=== PATIENT | male | born 1970 | race Caucasian/White ===

== ENCOUNTER 2019-06-05 18:47 | Inpatient (IN) | payer OTHER, MEDICAID ==
[~2019-06-05] VITALS: Ht 177.8 cm; Wt 213.6 kg
[~2019-06-05 18:47] MED LIST: ASPIR 8181 MG PO; COZAAR 25 MG TA25 M1 PO; LEXAPRO20 MG PO; LIPITOR 20 MG T20 M1 PO; UNICOMPLEX M TA1 TA1 PO
[2019-06-05 18:59] VITALS: BP 123/70
[2019-06-05 19:15] LABS: ABSOLUTE BASOPHILS 0.1 thou/uL (0.0-0.2); ABSOLUTE EOSINOPHILS 0.1 thou/uL (0.0-0.7); ABSOLUTE LYMPHOCYTES 1.2 thou/uL (0.8-5.3); ABSOLUTE MONOCYTES 0.4 thou/uL (0.0-1.2); ABSOLUTE NEUTROPHILS 5.4 thou/uL (1.6-8.1); BASOPHILS 0.9 %; EOSINOPHILS 1.8 %; HEMATOCRIT 42.5 % (42.0-52.0); HEMOGLOBIN 13.6 gm/dL (14.0-18.0); LYMPHOCYTES 17.3 %; MCH 25.7 pg (26.0-34.0); MCHC 31.9 g/dL (28.0-37.0); MCV 80.6 fL (80.0-100.0); MONOCYTES 5.1 %; MPV 7.6 fl. (7.2-11.1); NUCLEATED RBCS 0 /100WBC; PLATELET COUNT* 317 thou/uL (150-400); POLYS 74.9 %; RBC 5.27 mil/uL (4.50-6.00); RDW-CV 22.2 % (10.5-14.5); WBC 7.2 thou/uL (4.0-11.0)
[2019-06-05 19:20] LABS: ANION GAP 10 mmol/L (7-16); BUN 20 mg/dL (7-18); CALCIUM 9.7 mg/dL (8.5-10.1); CHLORIDE 102 mmol/L (98-107); CO2 25 mmol/L (21-32); CREATININE 1.4 mg/dL (0.6-1.3); GLUCOSE 130 mg/dL (70-99); SODIUM 137 mmol/L (136-145)
[2019-06-05 19:22] LABS: POTASSIUM 4.2 mmol/L (3.5-5.1)
[2019-06-05 19:26] LABS: APTT 34.3 Seconds (25.0-31.3); INR 1.1; PROTIME 11.1 Seconds (9.20-11.50)
[2019-06-05 19:35] LABS: ALBUMIN 3.5 g/dL (3.4-5.0); ALKALINE PHOSPHATASE 81 U/L (46-116); CK-MB MASS < 0.5 ng/mL (<0.5-3.6); LIPASE 139 U/L (73-393); MAGNESIUM 1.9 mg/dL (1.8-2.4); NT-PRO BRAIN NAT PEPTIDE 24 pg/mL (<300); SGOT 18 U/L (15-37); SGPT 19 U/L (30-65); TOTAL BILIRUBIN 0.3 mg/dL (<0.1-1.0); TOTAL PROTEIN 8.9 g/dL (6.4-8.2)
[2019-06-05 19:42] LABS: ANISOCYTOSIS 2+; PLATELET ESTIMATE ADEQUATE
[2019-06-06 01:00] VITALS: BP 100/63
[2019-06-06 04:58] VITALS: BP 118/61
[2019-06-06 12:22] VITALS: BP 129/73
[2019-06-06 13:02] VITALS: BP 139/78
[2019-06-06] MEDS ORDERED: PRINIVIL20 MG PO (13:13)
[2019-06-06] MEDS ORDERED: SEROQUEL 100 M100 M1 PO (13:27)
[2019-06-06] MEDS ORDERED: WELLBUTRIN XL300 MG PO (13:28)
[2019-06-06] MEDS ORDERED: COZAAR 25 MG TA25 M1 PO (13:37)
[2019-06-06] MEDS ORDERED: ELIQUIS5 MG PO (13:41)
[2019-06-06] MEDS ORDERED: TOPAMAX 25 MG T25 M1 PO (13:41)
[2019-06-06] MEDS ORDERED: LOPRESSOR50 MG PO (13:42)
[2019-06-06] MEDS ORDERED: FAMOTIDINE 20 M20 MG PO (13:43)
[2019-06-06] MEDS ORDERED: FUROSEMIDE 20 M20 MG PO (13:43)
[2019-06-06 14:19] LABS: BE -2.6 mmol/L (-2 to +3); PCO2 VENOUS 39.2 mmHg (41.0-51.0); PO2 VENOUS 70.6 mmHg (35.0-45.0)
--- NOTE | 2019-06-06 15:01 | EKG ---
[place] [address] ELECTROCARDIOGRAM REPORT Name: NIKKI HAYES V Room: [address] ADM IN M.R.#: [id number] Admission: 06/06/19 Attend Phys: Neil Cary Discharge: Date of : 66 Report #: [id number] THIS REPORT FOR: //name// [facility] ED Test Date: 2019-06-05 Test Time: 18:55:08 Pat Name: NIKKI HAYES Department: Room: [facility] Gender: M Edge Beader: LUCILA : 1970 Requested By: Scottie Vines Order Number: [id number] MD: Jose Angel [facility] Measurements Intervals [employer] Rate: 96 P: 47 [place]: 159 QRS: -28 QRSD: 87 T: 46 QT: 367 QTc: 464 Interpretive Statements Sinus rhythm Borderline left axis deviation Low voltage, precordial leads Borderline T abnormalities, anterior leads Baseline wander in lead(s) I,III,aVR,aVL No previous ECG available for comparison Electronically Signed On 06-06-2019 15:01:14 CDT by Jose Angel [facility] [email or web address] <ELECTRONICALLY SIGNED> By: Jose Angel [facility] MD, FACC 06/06/19 1501 1855 54 Jose Angel [facility] MD, [facility] /EPI
[2019-06-06 15:52] VITALS: BP 142/77
--- NOTE | 2019-06-06 16:25 | 2DMMODE ---
[place] [address] 2 D/M-MODE ECHOCARDIOGRAM Name: NIKKI HAYES V Room: [address] IN [facility]#: [id number] Admission: 06/06/19 Attend Phys: Rosas Oakes Discharge: Date of : 66 Date of Service: 06/06/19 1624 Report #: [id number] THIS REPORT FOR: //name// APPROVED REPORT Study performed: 06/06/2019 14:00:24 EXAM: Comprehensive 2D, Doppler, and color-flow Echocardiogram Patient Location: In-Patient Room #: [facility] Status: routine BSA: 3.01 HR: 81 bpm BP: 139/78 mmHg Rhythm: NSR Other Information Study Quality: Good Indications Chest Pain 2D Dimensions IVSd: 12.56 (7-11mm) LVOT Diam: 22.63 (18-24mm) LVDd: 50.72 mm PWd: 11.33 (7-11mm) Ascending Ao: 33.28 (22-36mm) LVDs: 31.45 (25-40mm) Aortic Root: 31.59 mm Volumes Left Atrial Volume (Systole) LA ESV Index: 19.60 mL/m2 Aortic Valve AoV Peak Darryl.: 1.59 m/s AO Peak Gr.: 10.10 mmHg LVOT Max P.97 mmHg AO Mean Gr.: 6.22 mmHg LVOT Mean P.45 mmHg LVOT Max V: 1.11 m/s AO V2 VTI: 28.11 cm LVOT Mean V: 0.72 m/s DANDY (VTI): 3.02 cm2 LVOT V1 VTI: 21.08 cm Mitral Valve E/A Ratio: 0.99 MV Decel. Time: 221.70 ms MV E Max Darryl.: 0.66 m/[place] [address] 2 D/M-MODE ECHOCARDIOGRAM Name: NIKKI HAYES V Room: [address] IN ..#: [id number] Admission: 06/06/19 Attend Phys: Rosas Oakes Discharge: Date of : 66 Date of Service: 06/06/19 1624 Report #: [id number] PHT: 64.29 ms MVA (PHT): 3.42 cm2 TDI E/Lateral E': 4.40 E/Medial E': 5.50 Medial E' Darryl.: 0.12 m/s Lateral E' Darryl.: 0.15 m/s Pulmonary Valve PV Peak Darryl.: 1.22 m/s PV Peak Gr.: 5.98 mmHg Left Ventricle The left ventricle is normal size. There is normal LV segmental wall motion. Mild to moderate concentric left ventricular hypertrophy. Left ventricular systolic function is normal. The left ventricular ejection fraction is within the normal range. LVEF is 65%. Grade I - abnormal relaxation pattern. Right Ventricle The right ventricle is normal size. The right ventricular systolic function is normal. Atria The left atrium size is normal. The right atrium size is normal. Aortic Valve Mild aortic valve sclerosis. No aortic regurgitation is present. There is no aortic valvular stenosis. Mitral Valve The mitral valve is normal in structure. There is no mitral valve regurgitation noted. No evidence of mitral valve stenosis. Tricuspid Valve The tricuspid valve is normal in structure. Unable to assess PA pressure. Trace tricuspid regurgitation. Pulmonic Valve The pulmonary valve is normal in structure. There is no pulmonic valvular regurgitation. Great Vessels The aortic root is normal in size. IVC is normal in size and collapses >50% with [place] [address] 2 D/M-MODE ECHOCARDIOGRAM Name: FREDDYNIKKI Jose Alberto Room: [address] IN [facility]#: [id number] Admission: 06/06/19 Attend Phys: Rosas Oakes Discharge: Date of : 66 Date of Service: 06/06/19 1624 Report #: [id number] Pericardium There is no pericardial effusion. <Conclusion> The left ventricle is normal size. Mild to moderate concentric left ventricular hypertrophy. Left ventricular systolic function is normal. The left ventricular ejection fraction is within the normal range. LVEF is 65%. Grade I - abnormal relaxation pattern. The right ventricle is normal size. The left atrium size is normal. Mild aortic valve sclerosis. No aortic regurgitation is present. There is no aortic valvular stenosis. The mitral valve is normal in structure. The tricuspid valve is normal in structure. IVC is normal in size and collapses >50% with inspiration. There is normal LV segmental wall motion. <ELECTRONICALLY SIGNED> By: Jose Angel [facility] MD, FACC 06/06/19 1624 1624 1624 Jose Angel [facility] MD, FACC /INF
[2019-06-06 20:00] VITALS: BP 123/77
[2019-06-07 00:30] VITALS: BP 114/64
[2019-06-07 04:28] VITALS: BP 138/82
[2019-06-07 05:18] LABS: HEMATOCRIT 35.9 % (42.0-52.0); MCH 25.4 pg (26.0-34.0); MCHC 31.6 g/dL (28.0-37.0); MCV 80.3 fL (80.0-100.0); MPV 7.5 fl. (7.2-11.1); RBC 4.47 mil/uL (4.50-6.00); RDW-CV 21.6 % (10.5-14.5); WBC 6.4 thou/uL (4.0-11.0)
[2019-06-07 05:28] LABS: HEMOGLOBIN 11.3 gm/dL (14.0-18.0)
[2019-06-07 05:35] LABS: ALBUMIN 2.9 g/dL (3.4-5.0); CREATININE 1.1 mg/dL (0.6-1.3); POTASSIUM 4.3 mmol/L (3.5-5.1); TOTAL BILIRUBIN 0.2 mg/dL (<0.1-1.0); TOTAL PROTEIN 7.3 g/dL (6.4-8.2)
[2019-06-07 08:00] VITALS: BP 139/75
[2019-06-07 11:48] VITALS: BP 139/81
[2019-06-07 14:17] VITALS: BP 139/81
[2019-06-07] MEDS ORDERED: TORSEMIDE100 MG PO (15:53)
== END 2019-06-07 18:40 | disposition home or self-care (01) | DRG 313 ==
LOC: M.ERS 18:47 → M.TBA-ER 06-06 00:11 → M.2W 06-06 00:11
PROVIDERS: Family Medicine; Internal Medicine; ADMIT Internal Medicine
DX: R07.89 Other chest pain (principal); Z68.44 Body mass index [BMI] 60.0-69.9, adult; E11.9 Type 2 diabetes mellitus without complications; E78.5 Hyperlipidemia, unspecified; K21.9 Gastro-esophageal reflux disease without esophagitis; F41.9 Anxiety disorder, unspecified; I11.0 Hypertensive heart disease with heart failure; F32.9 Major depressive disorder, single episode, unspecified; I50.9 Heart failure, unspecified; E66.01 Morbid (severe) obesity due to excess calories; Z86.711 Personal history of pulmonary embolism; Z88.8 Allergy status to other drugs, medicaments and biological substances; Z79.82 Long term (current) use of aspirin; Z79.899 Other long term (current) drug therapy

== ENCOUNTER 2019-11-10 22:05 | Emergency (ER) | payer MEDICARE, MEDICAID ==
[~2019-11-10] VITALS: Ht 177.8 cm; Wt 208.7 kg
[~2019-11-10 22:05] MED LIST changes: +ELIQUIS5 MG PO; +FAMOTIDINE 20 M20 MG PO; +FUROSEMIDE 20 M20 MG PO; +LOPRESSOR50 MG PO; +PRINIVIL20 MG PO; +SEROQUEL 100 M100 M1 PO; +TOPAMAX 25 MG T25 M1 PO; +TORSEMIDE100 MG PO; +WELLBUTRIN XL300 MG PO
[2019-11-10] MEDS ORDERED: PRINIVIL20 M1 PO (22:18)
[2019-11-10] MEDS ORDERED: FOLIC ACID1 MG PO (22:19)
[2019-11-10] MEDS ORDERED: ISORDIL10 MG PO (22:19)
[2019-11-10] MEDS ORDERED: SEROQUEL400 MG PO (22:20)
[2019-11-10 22:37] LABS: AMP/METHAMP Negative (Negative); BARBITURATES Negative (Negative); BENZODIAZEPINES Negative (Negative); COCAINE Negative (Negative); METHADONE Negative (Negative); OPIATES POSITIVE (Negative); PCP Negative (Negative); THC Negative (Negative); URINE BILIRUBIN NEGATIVE (Negative); URINE BLOOD NEGATIVE (Negative); URINE CLARITY CLEAR; URINE COLOR YELLOW; URINE GLUCOSE-RANDOM NEGATIVE (Negative); URINE KETONES NEGATIVE (Negative); URINE LEUKOCYTES-REFLEX NEGATIVE (Negative); URINE NITRITE-REFLEX NEGATIVE (Negative); URINE PROTEIN NEGATIVE (Negative); URINE SPECIFIC GRAVITY 1.015 (1.005-1.030)
[2019-11-10 22:40] LABS: ABSOLUTE BASOPHILS 0.1 thou/uL (0.0-0.2); ABSOLUTE EOSINOPHILS 0.1 thou/uL (0.0-0.7); ABSOLUTE LYMPHOCYTES 1.2 thou/uL (0.8-5.3); ABSOLUTE MONOCYTES 0.8 thou/uL (0.0-1.2); BASOPHILS 0.9 %; EOSINOPHILS 1.7 %; HEMATOCRIT 34.2 % (42.0-52.0); HEMOGLOBIN 11.2 gm/dL (14.0-18.0); LYMPHOCYTES 14.8 %; MCH 25.7 pg (26.0-34.0); MCHC 32.7 g/dL (28.0-37.0); MCV 78.4 fL (80.0-100.0); MONOCYTES 9.3 %; MPV 7.3 fl. (7.2-11.1); NUCLEATED RBCS 0 /100WBC; PLATELET COUNT* 329 thou/uL (150-400); POLYS 73.3 %; RBC 4.36 mil/uL (4.50-6.00); RDW-CV 17.6 % (10.5-14.5); WBC 8.2 thou/uL (4.0-11.0)
[2019-11-10 22:50] LABS: APTT 32.2 Seconds (25.0-31.3); INR 1.1
[2019-11-10 22:53] LABS: CALCIUM 8.3 mg/dL (8.5-10.1); CREATININE 1.5 mg/dL (0.6-1.3); POTASSIUM 4.3 mmol/L (3.5-5.1)
[2019-11-10 23:07] LABS: ALBUMIN 3.2 g/dL (3.4-5.0); CK-MB MASS 0.7 ng/mL (<0.5-3.6); TOTAL BILIRUBIN 0.3 mg/dL (<0.1-1.0)
[2019-11-11 01:53] VITALS: BP 107/56
--- NOTE | 2019-11-12 10:23 | EKG ---
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
== END 2019-11-11 01:53 | disposition home or self-care (01) ==
LOC: M.ERS 22:05
PROVIDERS: Family Medicine
DX: R07.89 Other chest pain (principal); Z88.8 Allergy status to other drugs, medicaments and biological substances; E78.5 Hyperlipidemia, unspecified; I11.0 Hypertensive heart disease with heart failure; I50.9 Heart failure, unspecified; K21.9 Gastro-esophageal reflux disease without esophagitis; E11.9 Type 2 diabetes mellitus without complications; Z86.711 Personal history of pulmonary embolism; Z79.899 Other long term (current) drug therapy

== ENCOUNTER 2020-06-16 00:30 | Observation (INO) | payer MEDICARE, MEDICAID ==
[~2020-06-16] VITALS: Ht 177.8 cm; Wt 220.0 kg
[~2020-06-16 00:30] MED LIST changes: +FOLIC ACID1 MG PO; +ISORDIL10 MG PO; +PRINIVIL20 M1 PO; +SEROQUEL400 MG PO
[2020-06-16 00:40] VITALS: BP 153/109
[2020-06-16] MEDS ORDERED: JANTOVEN7.5 MG PO (00:45)
[2020-06-16 01:16] LABS: ABSOLUTE BASOPHILS 0.1 thou/uL (0.0-0.2); ABSOLUTE EOSINOPHILS 0.3 thou/uL (0.0-0.7); ABSOLUTE LYMPHOCYTES 1.4 thou/uL (0.8-5.3); ABSOLUTE MONOCYTES 0.5 thou/uL (0.0-1.2); ABSOLUTE NEUTROPHILS 4.4 thou/uL (1.6-8.1); BASOPHILS 1.2 %; HEMATOCRIT 33.5 % (42.0-52.0); HEMOGLOBIN 10.3 gm/dL (14.0-18.0); LYMPHOCYTES 20.9 %; MCHC 30.9 g/dL (28.0-37.0); MCV 77.6 fL (80.0-100.0); MONOCYTES 7.2 %; MPV 6.9 fl. (7.2-11.1); NUCLEATED RBCS 0 /100WBC; PLATELET COUNT* 363 thou/uL (150-400); POLYS 66.7 %; RBC 4.31 mil/uL (4.50-6.00); RDW-CV 22.6 % (10.5-14.5); WBC 6.6 thou/uL (4.0-11.0)
[2020-06-16 01:38] LABS: APTT 38.1 Seconds (25.0-31.3); CALCIUM 8.3 mg/dL (8.5-10.1); CREATININE 1.3 mg/dL (0.6-1.3); INR 2.1; PROTIME 21.3 Seconds (9.20-11.50)
[2020-06-16 01:52] LABS: ALBUMIN 2.9 g/dL (3.4-5.0); MAGNESIUM 1.9 mg/dL (1.8-2.4); TOTAL BILIRUBIN 0.2 mg/dL (<0.1-1.0); TOTAL PROTEIN 7.8 g/dL (6.4-8.2)
--- NOTE | 2020-06-16 03:13 | NUR ---
PT IN INPATIENT BED
[2020-06-16 05:05] VITALS: BP 105/43
--- NOTE | 2020-06-16 07:06 | NUR ---
RESUMED CARE AT 0700 AND RECEIVED FULL REPORT
[2020-06-16 08:09] LABS: CHOLESTEROL 139 mg/dL (<200); HDL CHOLESTEROL 21 mg/dL (>40); LDL CHOLESTEROL 83 mg/dL (<100); TC:HDL 6.6 Ratio (Not establshd); TRIGLYCERIDE 178 mg/dL (<150); VLDL 36 mg/dL (<40)
[2020-06-16 08:11] LABS: SERUM ASSESSMENT Clear
[2020-06-16 08:21] LABS: CALCIUM 8.4 mg/dL (8.5-10.1); CREATININE 1.3 mg/dL (0.6-1.3); POTASSIUM 4.2 mmol/L (3.5-5.1)
[2020-06-16 08:24] LABS: MAGNESIUM 2.2 mg/dL (1.8-2.4)
[2020-06-16 09:09] VITALS: BP 130/55
--- NOTE | 2020-06-16 10:20 | EKG ---
[place] [address] ELECTROCARDIOGRAM REPORT Name: NIKKI HAYES V Room: [address]R.#: [id number] Admission: 06/16/20 Attend Phys: Genny Gross, Discharge: Date of : 66 Date of Service: 06/16/20 0038 Report #: [id number] THIS REPORT FOR: //name// [facility] ED Test Date: 2020-06-16 Test Time: 00:38:44 Pat Name: NIKKI HAYES Department: Room: [facility] Gender: M Stereotyper: GAIL : 1970 Requested By: Ghulam Lomeli Order Number: [id number] MD: Jeryr Cooper Measurements Intervals [place] Rate: 64 P: 66 CT: 171 QRS: 13 QRSD: 107 T: 45 QT: 417 QTc: 431 Interpretive Statements Sinus rhythm early transition Compared to ECG 11/10/2019 22:14:27 Left-axis deviation no longer present Electronically Signed On 06-16-2020 10:20:13 INTERMEDIATE SCHOOL TEACHER by Jerry Cooper [email or web address] <ELECTRONICALLY SIGNED> By: Jerry Cooper MD, [facility] 06/16/20 1020 0038 0038 Jerry Cooper MD, [facility] /EPI
[2020-06-16 11:00] VITALS: BP 130/55
[2020-06-16 11:30] VITALS: BP 125/63
[2020-06-16 11:44] VITALS: BP 125/63
--- NOTE | 2020-06-16 13:43 | CON ---
[address] [address] CONSULTATION Name: NIKKI HAYES V Room: [address] Yuliana#: [id number] Admission: 06/16/20 Attend Phys: Genny Gross MD Discharge: Date of : 66 Report #: [id number] THIS REPORT FOR: //name// cc: NYA - No family physician/PCP FAM - No family physician/PCP ~ DATE OF SERVICE: 06/16/2020 CARDIOLOGY CONSULTATION HISTORY OF PRESENT ILLNESS: The patient is a 49-year-old single white male, who came to the Emergency Room last night complaining of chest pain. The patient has an extensive and complicated past medical history. Unfortunately, he has minimal records here at [facility]. He previously lived in [place], [place]. He has a history of morbid obesity. He has been 5 feet 10 inches; 470 pounds. He is not very active at this time. He uses a cane. He notes that in 2018, he had a blood clot at and he was put on Eliquis. However, he is unsure if the clot was in his lungs or his legs. 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 He was switched from Eliquis to warfarin. He has had no bleeding problems. He was at home yesterday when he felt a pain in his chest. It is a sharp pain; made him short of breath. He does have edema. He noticed his heart racing. He has had no recent syncope. He has been coughing, but denied any pain being related to food. He finally came to the Emergency Room last night and was admitted. He denied trauma to his chest. There has been no rash. The pain was not related to food. PAST MEDICAL HISTORY: Otherwise, he has had ankle surgery, appendectomy, hypertension, diabetes. CURRENT MEDICATIONS: Consist of aspirin, Lipitor, Wellbutrin, metoprolol, Lasix, lisinopril, Seroquel, warfarin. HE HAS A PREVIOUS INTOLERANCE TO EFFEXOR. FAMILY HISTORY: His father had heart attack. SOCIAL HISTORY: He is single. Never been . Currently on disability because of back problems. 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 He lives in [place]. No smoking. No alcohol abuse. He has smoked marijuana in the past. He apparently used IV methamphetamine in the past. No longer abuses IV drugs. REVIEW OF SYSTEMS: He is 5 feet 10 inches, 470 pounds. He has no history of stroke. He does snore at night. No asthma. He apparently had hepatitis C and was treated in [place] in the past. No history of kidney disease. He saw a psychiatrist in the past for anxiety[place] [address] CONSULTATION Name: NIKKI HAYES V [address] [id number] Admission: 06/16/20 Attend Phys: Genny Gross MD Discharge: Date of : 66 Report #: [id number] PHYSICAL EXAMINATION: GENERAL: Revealed a large, obese male, appeared in no distress. VITAL SIGNS: He had a blood pressure of 130/60, pulse is 60. He is afebrile. HEENT: He was anicteric. Conjunctivae pink. Mucous membranes moist. NECK: Neck veins are difficult to assess due to obesity. CHEST: Clear to auscultation. HEART: Regular rate and rhythm. ABDOMEN: Obese. EXTREMITIES: Had trace edema. SKIN: Cool and dry. NEUROLOGIC: Nonfocal. RADIOLOGICAL DATA: His ECG showed a sinus rhythm. There was no significant ST or T-wave change noted. He actually had an echocardiogram here at [facility] a year ago when he complained of chest pain that showed ejection fraction of 65%, left ventricular hypertrophy, aortic sclerosis. His x-rays last night, he had a portable chest x-ray that showed normal heart size and clear lung wong. LABORATORY WORK: Sodium 137, creatinine 1.3. Troponins all 0.06. BNP 138. His INR was 2.1. White blood cell count 6.6, hematocrit 33.5. IMPRESSION AND RECOMMENDATIONS: 1. Chest pain. Atypical for angina. Suspect noncardiac. Recommend no further cardiac evaluation. 2. Obesity. 3. Snoring at night. I would rule out sleep apnea. 4. History of hepatitis C, this has been treated. 5. History of IV drug abuse. 6. History of anxiety disorder. 7. Hypertension. The patient is on a beta-janelle and SHERYL inhibitor. 8. Hyperlipidemia. The patient is on a statin drug. 9. History of pulmonary embolus. The patient on warfarin. <ELECTRONICALLY SIGNED> By: Jerry Cooper MD, FACC 06/16/20 1343 0955 [id number] Cooper MD, FACC /nt
[2020-06-17 02:06] LABS: GLYCOHEMOGLOBIN (HGB A1C) 5.8 % (4.8-5.6)
== END 2020-06-16 11:44 | disposition home or self-care (01) ==
LOC: M.ERS 00:30 → M.TBA-ER 02:26
PROVIDERS: Emergency Medicine Emergency Medical Services; Internal Medicine; ADMIT Internal Medicine; ATTEND Internal Medicine
DX: R07.89 Other chest pain (principal); E78.5 Hyperlipidemia, unspecified; F32.9 Major depressive disorder, single episode, unspecified; K21.9 Gastro-esophageal reflux disease without esophagitis; E66.01 Morbid (severe) obesity due to excess calories; D50.9 Iron deficiency anemia, unspecified; I13.0 Hypertensive heart and chronic kidney disease with heart failure and stage 1 through stage 4 chronic kidney disease, or unspecified chronic kidney disease; I50.32 Chronic diastolic (congestive) heart failure; E11.22 Type 2 diabetes mellitus with diabetic chronic kidney disease; F41.1 Generalized anxiety disorder; N18.2 Chronic kidney disease, stage 2 (mild); D68.69 Other thrombophilia; Z79.82 Long term (current) use of aspirin; Z68.44 Body mass index [BMI] 60.0-69.9, adult; Z79.899 Other long term (current) drug therapy; Z20.828 Contact with and (suspected) exposure to other viral communicable diseases

== ENCOUNTER 2020-06-24 11:51 | Emergency (ER) | payer MEDICARE, MEDICAID ==
[~2020-06-24] VITALS: Ht 177.8 cm; Wt 210.9 kg
[~2020-06-24 11:51] MED LIST changes: +JANTOVEN7.5 MG PO
[2020-06-24 12:22] LABS: ABSOLUTE EOSINOPHILS 0.4 thou/uL (0.0-0.7); ABSOLUTE LYMPHOCYTES 1.1 thou/uL (0.8-5.3); ABSOLUTE MONOCYTES 0.6 thou/uL (0.0-1.2); ABSOLUTE NEUTROPHILS 5.2 thou/uL (1.6-8.1); BASOPHILS 0.6 %; EOSINOPHILS 6.1 %; HEMATOCRIT 36.9 % (42.0-52.0); HEMOGLOBIN 11.3 gm/dL (14.0-18.0); MCH 23.8 pg (26.0-34.0); MCHC 30.6 g/dL (28.0-37.0); MCV 77.6 fL (80.0-100.0); MONOCYTES 7.5 %; MPV 6.8 fl. (7.2-11.1); NUCLEATED RBCS 0 /100WBC; PLATELET COUNT* 372 thou/uL (150-400); POLYS 70.8 %; RBC 4.76 mil/uL (4.50-6.00); RDW-CV 22.4 % (10.5-14.5); WBC 7.4 thou/uL (4.0-11.0)
[2020-06-24 12:37] LABS: CALCIUM 8.9 mg/dL (8.5-10.1); CREATININE 1.3 mg/dL (0.6-1.3); POTASSIUM 4.4 mmol/L (3.5-5.1)
[2020-06-24 12:46] LABS: APTT 36.9 Seconds (25.0-31.3); INR 1.6; PROTIME 16.7 Seconds (9.20-11.50)
[2020-06-24 13:01] LABS: ALBUMIN 3.3 g/dL (3.4-5.0); CK-MB MASS 0.8 ng/mL (<0.5-3.6); MAGNESIUM 2.3 mg/dL (1.8-2.4); TOTAL BILIRUBIN 0.3 mg/dL (<0.1-1.0); TOTAL PROTEIN 9.3 g/dL (6.4-8.2)
[2020-06-24 13:27] VITALS: BP 124/70
--- NOTE | 2020-06-24 16:13 | EKG ---
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: [place] : 1970 Requested By: Scottie Vines Order Number: [id number] MD: Jose Angel [facility] Measurements Intervals [place] Rate: 66 P: 35 [place]: 164 QRS: 6 QRSD: 105 T: 38 QT: 403 QTc: 423 Interpretive Statements Sinus rhythm Low voltage, precordial leads Abnormal R-wave progression, early transition Compared to ECG 06/16/2020 00:38:44 Low QRS voltage now present Electronically Signed On 06-24-2020 16:13:07 HEALTH TEACHER by Jose Angel [facility] [email or web address] <ELECTRONICALLY SIGNED> By: Jose Angel [facility] MD, [facility] 06/24/20 1613 1156 1156 Jose Angel [facility] MD, [facility] /EPI
== END 2020-06-24 13:29 | disposition home or self-care (01) ==
LOC: M.ERS 11:51
PROVIDERS: Family Medicine
DX: R07.89 Other chest pain (principal); Z88.8 Allergy status to other drugs, medicaments and biological substances; I11.0 Hypertensive heart disease with heart failure; I50.32 Chronic diastolic (congestive) heart failure; E78.5 Hyperlipidemia, unspecified; E11.9 Type 2 diabetes mellitus without complications; K21.9 Gastro-esophageal reflux disease without esophagitis; E66.01 Morbid (severe) obesity due to excess calories; Z68.44 Body mass index [BMI] 60.0-69.9, adult; Z86.711 Personal history of pulmonary embolism

== ENCOUNTER 2020-07-19 21:23 | Observation (INO) | payer MEDICARE, MEDICAID ==
[~2020-07-19] VITALS: Ht 177.8 cm; Wt 227.2 kg
[~2020-07-19 21:23] MED LIST changes: +BRINTELLIX10 MG PO; +ENOXAPARIN150 MG/1 M SUBQ; +ENOXAPARIN60 MG/0.1 SUBQ; +METFORMIN HCL500 M3 PO; +PROTONIX40 M4 PO; +SLOW FE142 MG PO
[2020-07-19 21:32] VITALS: BP 140/70
[2020-07-19 22:08] LABS: ABSOLUTE BASOPHILS 0.1 thou/uL (0.0-0.2); ABSOLUTE EOSINOPHILS 0.2 thou/uL (0.0-0.7); ABSOLUTE LYMPHOCYTES 1.2 thou/uL (0.8-5.3); ABSOLUTE MONOCYTES 0.6 thou/uL (0.0-1.2); ABSOLUTE NEUTROPHILS 5.4 thou/uL (1.6-8.1); BASOPHILS 1.1 %; EOSINOPHILS 2.7 %; HEMATOCRIT 34.9 % (42.0-52.0); HEMOGLOBIN 10.6 gm/dL (14.0-18.0); LYMPHOCYTES 15.8 %; MCHC 30.3 g/dL (28.0-37.0); MONOCYTES 7.9 %; MPV 7.2 fl. (7.2-11.1); NUCLEATED RBCS 0 /100WBC; PLATELET COUNT* 327 thou/uL (150-400); POLYS 72.5 %; RBC 4.42 mil/uL (4.50-6.00); RDW-CV 21.9 % (10.5-14.5); WBC 7.4 thou/uL (4.0-11.0)
[2020-07-19 22:17] LABS: PROTIME 10.8 Seconds (9.20-11.50)
[2020-07-19 22:20] LABS: CALCIUM 8.3 mg/dL (8.5-10.1); CREATININE 1.1 mg/dL (0.6-1.3); POTASSIUM 4.1 mmol/L (3.5-5.1)
[2020-07-19 22:21] LABS: ANISOCYTOSIS 2+; HYPOCHROMASIA 1+; OVALOCYTES Occasional; PLATELET ESTIMATE ADEQUATE
[2020-07-19 22:30] LABS: ALBUMIN 3.3 g/dL (3.4-5.0); TOTAL BILIRUBIN 0.2 mg/dL (<0.1-1.0); TOTAL PROTEIN 8.1 g/dL (6.4-8.2)
[2020-07-20 06:42] LABS: URINE BILIRUBIN NEGATIVE (Negative); URINE BLOOD NEGATIVE (Negative); URINE CLARITY CLEAR; URINE COLOR YELLOW; URINE GLUCOSE-RANDOM NEGATIVE (Negative); URINE KETONES NEGATIVE (Negative); URINE LEUKOCYTES-REFLEX NEGATIVE (Negative); URINE NITRITE-REFLEX NEGATIVE (Negative); URINE PROTEIN NEGATIVE (Negative); URINE SPECIFIC GRAVITY 1.025 (1.005-1.030); URINE UROBILINOGEN 0.2 E.U./dl (0.2-1.0)
[2020-07-20 07:00] VITALS: BP 144/70
[2020-07-20 10:31] LABS: AMP/METHAMP Negative (Negative); BARBITURATES Negative (Negative); BENZODIAZEPINES Negative (Negative); COCAINE Negative (Negative); METHADONE Negative (Negative); OPIATES POSITIVE (Negative); PCP Negative (Negative); THC Negative (Negative)
[2020-07-20 10:38] VITALS: BP 150/71
[2020-07-20 11:53] VITALS: BP 117/58
--- NOTE | 2020-07-20 12:49 | EKG ---
[place] [address] ELECTROCARDIOGRAM REPORT Name: NIKKI HAYES Room: [address] M.R.#: [id number] Admission: 07/20/20 Attend Phys: Genny Gross, Discharge: Date of : 66 Date of Service: 07/19/202127 Report #: [id number] THIS REPORT FOR: //name// [facility] ED Test Date: 2020-07-19 Test Time: 21:28:15 Pat Name: NIKKI HAYES Department: Room: [facility] Gender: M State Comptroller: MARY : 1970 Requested By: Lillian Cardoza Order Number: [id number] MD: Saroj Lizama Measurements Intervals [place] Rate: 64 P: [place]: QRS: -13 QRSD: 101 T: 32 QT: 406 QTc: 419 Interpretive Statements Sinus rhythm Abnormal R-wave progression, early transition Compared to ECG 06/24/2020 11:56:41 No significant changes noted Electronically Signed On 07-20-2020 12:49:04 ARCHITECTURAL COATING FINISHER by Saroj Lizama [email or web address] <ELECTRONICALLY SIGNED> By: Saroj Lizama MD, FACC 07/20/20 1249 27 27 Saroj Lizama MD, FACC /EPI
--- NOTE | 2020-07-22 07:50 | CON ---
[address] [address] CONSULTATION Name: NIKKI HAYES Room: [address] Xochitl Bridges#: [id number] Admission: 07/20/20 Attend Phys: Genny Gross MD Discharge: 07/20/20 Date of : 66 Report #: [id number] THIS REPORT FOR: //name// cc: NYA - No family physician/PCP FAM - No family physician/PCP ~ CARDIOLOGY CONSULTATION INDICATION: Chest pain. HISTORY OF PRESENT ILLNESS: The patient is a 49-year-old gentleman seen in the Emergency Room with chest discomfort described as midsternal without radiation. The patient has been having dull chest discomfort overnight. Cardiac enzymes are unremarkable. EKG shows sinus rhythm without acute ST or T-wave abnormality. He has a history of DVT in the remote past and is anticoagulated. He is without other complaint at this time. PAST MEDICAL HISTORY: 1. DVT. 2. Ankle surgery. 3. Appendectomy. 4. Hypertension. 5. Diabetes. CURRENT MEDICATIONS: Aspirin 81 mg daily, atorvastatin 40 mg at bedtime, Wellbutrin XL 300 mg daily, Lovenox 60 mg subcutaneous at bedtime, Lexapro 20 mg daily, iron sulfate 142 mg daily, furosemide 20 mg daily, Imdur 30 mg daily, metoprolol tartrate 25 mg daily, multivitamin 1 tablet daily, Protonix 40 mg daily, Seroquel 400 mg at bedtime, Topamax 25 mg b.i.d., Trintellix 10 mg p.o. daily, warfarin 7.5 mg p.o. daily. ALLERGIES: EFFEXOR. FAMILY HISTORY: The patient's father had coronary artery disease. SOCIAL HISTORY: The patient is single. He denies use of tobacco or alcohol. Remote history of some illicit drug use in the past. REVIEW OF SYSTEMS: He reports sleep apnea. He has a remote history of hepatitis. He reports anxiety without depression. Otherwise, 14-point review of systems unremarkable. PHYSICAL EXAMINATION: VITAL SIGNS: Blood pressure is 140/70, pulse is 68 [place] [address] CONSULTATION Name: NIKKI HAYES Room: [address]#: [id number] Admission: 07/20/20 Attend Phys: Genny Gross MD Discharge: 07/20/20 Date of : 66 Report #: [id number] GENERAL: This is a morbidly obese, pleasant male, in no distress. Mood and affect appropriate. HEENT: The patient is wearing glasses. Extraocular muscles intact. Mucous membranes are moist. NECK: Shows no obvious jugular venous distention. CHEST: Reveals clear lung wong without wheezes or rales. CARDIAC: Reveals a regular rhythm, normal S1 and S2. I do not appreciate gallop or murmur. ABDOMEN: Reveals a protuberant abdomen, soft, and nontender. Bowel sounds present. EXTREMITIES: Show no edema. SKIN: Warm and dry. A 12-lead EKG shows sinus rhythm without significant ST or T-wave abnormality. LABORATORY DATA: Labs are evaluated. Troponins are less than 0.06 on 3 separate occasions. IMPRESSION AND RECOMMENDATIONS: 1. Atypical chest pain. The patient has ruled out for myocardial infarction. Doubt this is cardiac in nature. Suspect he may have some esophageal spasm. Recommend GI cocktail x 1. 2. History of deep venous thrombosis. The patient chronically anticoagulated as outlined above. 3. Hypertension. Blood pressure appears presently stable. 4. Hyperlipidemia. The patient is currently on a statin agent. From a cardiac standpoint, the patient appears stable for discharge. <ELECTRONICALLY SIGNED> By: Saroj Lizama MD, FACC 07/22/20 0750 1030 [id number] Lziama MD, FACC /nt
== END 2020-07-20 11:55 | disposition home or self-care (01) ==
LOC: M.ERS 21:23 → M.TBA-ER 07-20 02:42
PROVIDERS: Emergency Medicine; Internal Medicine; ADMIT Internal Medicine; ATTEND Internal Medicine
DX: R07.89 Other chest pain (principal); I11.0 Hypertensive heart disease with heart failure; I50.9 Heart failure, unspecified; E11.9 Type 2 diabetes mellitus without complications; F41.9 Anxiety disorder, unspecified; F32.9 Major depressive disorder, single episode, unspecified; E66.01 Morbid (severe) obesity due to excess calories; Z68.45 Body mass index [BMI] 70 or greater, adult; Z86.711 Personal history of pulmonary embolism; Z87.891 Personal history of nicotine dependence; Z79.82 Long term (current) use of aspirin; Z79.01 Long term (current) use of anticoagulants; Z79.899 Other long term (current) drug therapy; Z20.828 Contact with and (suspected) exposure to other viral communicable diseases

== ENCOUNTER 2020-08-23 06:08 | Emergency (ER) | payer MEDICARE, MEDICAID ==
[~2020-08-23] VITALS: Ht 177.8 cm; Wt 226.3 kg
[2020-08-23 06:30] LABS: ABSOLUTE EOSINOPHILS 0.2 thou/uL (0.0-0.7); ABSOLUTE LYMPHOCYTES 1.5 thou/uL (0.8-5.3); ABSOLUTE MONOCYTES 0.7 thou/uL (0.0-1.2); ABSOLUTE NEUTROPHILS 4.6 thou/uL (1.6-8.1); BASOPHILS 0.5 %; EOSINOPHILS 2.7 %; HEMATOCRIT 31.5 % (42.0-52.0); HEMOGLOBIN 9.9 gm/dL (14.0-18.0); MCH 23.8 pg (26.0-34.0); MCHC 31.4 g/dL (28.0-37.0); MONOCYTES 9.3 %; MPV 6.3 fl. (7.2-11.1); NUCLEATED RBCS 0 /100WBC; PLATELET COUNT* 327 thou/uL (150-400); POLYS 66.5 %; RBC 4.14 mil/uL (4.50-6.00); RDW-CV 19.5 % (10.5-14.5)
[2020-08-23 06:42] LABS: APTT 30.2 Seconds (25.0-31.3); INR 1.2
[2020-08-23 06:44] LABS: CALCIUM 8.6 mg/dL (8.5-10.1); CREATININE 1.3 mg/dL (0.6-1.3); POTASSIUM 3.9 mmol/L (3.5-5.1)
[2020-08-23 06:48] LABS: ALBUMIN 2.9 g/dL (3.4-5.0); TOTAL BILIRUBIN 0.2 mg/dL (<0.1-1.0)
[2020-08-23] MEDS ORDERED: PROTONIX40 MG PO (08:47)
[2020-08-23 08:55] VITALS: BP 103/55
--- NOTE | 2020-08-23 13:53 | EKG ---
[place] [address] ELECTROCARDIOGRAM REPORT Name: NIKKI HAYES Room: [facility]#: [id number] Admission: 08/23/20 Attend Phys: Discharge: 08/23/20 Date of : 66 Date of Service: 08/23/206[address] Report #: [id number] THIS REPORT FOR: //name// [facility] ED Test Date: 2020-08-23 Test Time: 06:14:00 Pat Name: NIKKI HAYES Department: Room: Gender: Folded Cloth Taper: [place] : 1970 Requested By: Tatiana Chavez Order Number: [id number] MD: Jeremy Dobbs Measurements Intervals [place] Rate: 67 P: 57 [place]: 167 QRS: -1 QRSD: 105 T: 55 QT: 401 QTc: 424 Interpretive Statements Sinus rhythm Abnormal R-wave progression, early transition Compared to ECG 07/19/2020 21:28:15 No significant changes Electronically Signed On 08-23-2020 13:53:16 MOLYBDENUM STEAMER OPERATOR by Jeremy Dobbs [email or web address] <ELECTRONICALLY SIGNED> By: Emperatriz Dobbs MD, [facility] 08/23/20 1353 0614 Emperatriz Dobbs MD, [facility] /EPI
--- NOTE | 2020-08-25 10:04 | EKG ---
[place] [address] ELECTROCARDIOGRAM REPORT Name: NIKKI HAYES Room: [facility]#: [id number] Admission: 08/23/20 Attend Phys: Discharge: 08/23/20 Date of : [birth year] Date of Service: 08/23/20622 Report #: [id number] THIS REPORT FOR: //name// [facility] ED Test Date: 2020-08-23 Test Time: 06:23:17 Pat Name: NIKKI HAYES Department: Room: Gender: Supervisor Cabinetmaker: [place] : 1970 Requested By: Tatiana Chavez Order Number: [id number] Kaycee MD: Jose Angel [facility] Measurements Intervals [place] Rate: 85 P: 6 [place]: 168 QRS: 7 QRSD: 101 T: 29 QT: 382 QTc: 455 Interpretive Statements Sinus rhythm Compared to ECG 08/23/2020 06:14:00 No significant changes Electronically Signed On 08-25-2020 10:04:50 HEALTH RESEARCHER by Jose Angel [facility] [email or web address] <ELECTRONICALLY SIGNED> By: Jose Angel [facility] MD, [facility] 08/25/20 1004 2 2 Jose Angel [facility] MD, [facility] /EPI
== END 2020-08-23 08:58 | disposition home or self-care (01) ==
LOC: M.ERS 06:08
PROVIDERS: Personal Emergency Response Attendant
DX: R07.9 Chest pain, unspecified (principal); K21.9 Gastro-esophageal reflux disease without esophagitis; E78.5 Hyperlipidemia, unspecified; E11.9 Type 2 diabetes mellitus without complications; I11.0 Hypertensive heart disease with heart failure; I50.9 Heart failure, unspecified; Z79.82 Long term (current) use of aspirin; Z79.899 Other long term (current) drug therapy; Z88.8 Allergy status to other drugs, medicaments and biological substances; Z91.011 Allergy to milk products

== ENCOUNTER 2020-11-17 21:36 | Emergency (ER) | payer MEDICARE, MEDICAID ==
[~2020-11-17] VITALS: Ht 177.8 cm; Wt 222.3 kg
[~2020-11-17 21:36] MED LIST changes: +GLYBURIDE 2.52.5 M1 PO; +LOVENOX150 MG/1 M SUBQ; +METOPROLOL SUCC50 MG PO; +PROTONIX40 MG PO
[2020-11-17 22:40] LABS: ABSOLUTE BASOPHILS 0.1 thou/uL (0.0-0.2); ABSOLUTE EOSINOPHILS 0.2 thou/uL (0.0-0.7); ABSOLUTE LYMPHOCYTES 1.5 thou/uL (0.8-5.3); ABSOLUTE MONOCYTES 0.6 thou/uL (0.0-1.2); ABSOLUTE NEUTROPHILS 6.8 thou/uL (1.6-8.1); EOSINOPHILS 2.1 %; HEMATOCRIT 36.4 % (42.0-52.0); LYMPHOCYTES 16.4 %; MCH 22.4 pg (26.0-34.0); MCHC 30.3 g/dL (28.0-37.0); MCV 74.1 fL (80.0-100.0); MONOCYTES 6.3 %; MPV 6.9 fl. (7.2-11.1); NUCLEATED RBCS 0 /100WBC; PLATELET COUNT* 412 thou/uL (150-400); POLYS 74.2 %; RBC 4.91 mil/uL (4.50-6.00); RDW-CV 19.6 % (10.5-14.5); WBC 9.2 thou/uL (4.0-11.0)
[2020-11-17 22:49] LABS: CALCIUM 8.9 mg/dL (8.5-10.1); CREATININE 1.3 mg/dL (0.6-1.3); POTASSIUM 3.6 mmol/L (3.5-5.1)
[2020-11-17 22:58] LABS: PROTIME 10.9 Seconds (9.20-11.50)
[2020-11-17 23:00] LABS: ALBUMIN 3.3 g/dL (3.4-5.0); TOTAL BILIRUBIN 0.2 mg/dL (<0.1-1.0); TOTAL PROTEIN 8.5 g/dL (6.4-8.2)
[2020-11-17 23:39] LABS: AMP/METHAMP Negative (Negative); BARBITURATES Negative (Negative); BENZODIAZEPINES Negative (Negative); COCAINE Negative (Negative); METHADONE Negative (Negative); OPIATES Negative (Negative); PCP Negative (Negative); THC Negative (Negative)
[2020-11-18 00:24] LABS: ANISOCYTOSIS 1+; PLATELET ESTIMATE ADEQUATE; POLYCHROMASIA 1+
[2020-11-18 00:25] LABS: MICROCYTES 1+
[2020-11-18 00:27] LABS: LARGE PLATELETS OCCASIONAL
[2020-11-18 00:28] LABS: HYPOCHROMASIA 1+
[2020-11-18 01:34] VITALS: BP 117/64
[2020-11-18 05:14] LABS: URINE BILIRUBIN NEGATIVE (Negative); URINE BLOOD 2+ (Negative); URINE CLARITY CLEAR; URINE COLOR YELLOW; URINE GLUCOSE-RANDOM NEGATIVE (Negative); URINE KETONES NEGATIVE (Negative); URINE LEUKOCYTES-REFLEX NEGATIVE (Negative); URINE NITRITE-REFLEX NEGATIVE (Negative); URINE PROTEIN NEGATIVE (Negative); URINE SPECIFIC GRAVITY >= 1.030 (1.005-1.030); URINE UROBILINOGEN 0.2 E.U./dl (0.2-1.0)
[2020-11-18 05:25] LABS: SQUAMOUS 0-3 Few /LPF (0-3); URINE WBC-REFLEX 0-5 Rare /HPF (0-5)
[2020-11-18 05:26] LABS: BACTERIA-REFLEX 1-9 Few /HPF (None Seen); CASTS None Seen /LPF (None Seen); CRYSTALS None Seen /LPF (None Seen); MUCUS 0-3 Light strn/LPF (None Seen); URINE RBC >20 Many /HPF (0-2)
--- NOTE | 2020-11-18 09:19 | EKG ---
[place] [address] ELECTROCARDIOGRAM REPORT Name: NIKKI HAYES V Room: [facility]#: [id number] Admission: 11/17/20 Attend Phys: Discharge: 11/18/20 Date of : [birth year] Date of Service: 11/17/202138 Report #: [id number] THIS REPORT FOR: //name// [facility] ED Test Date: 2020-11-17 Test Time: 21:39:55 Pat Name: NIKKI HAYES Department: Room: Gender: Collar Tailor: : 1970 Requested By: Lillian Cardoza Order Number: [id number] MD: Jose Angel [facility] Measurements Intervals [place] Rate: 68 P: 41 [place]: 170 QRS: -17 QRSD: 100 T: 44 QT: 406 QTc: 432 Interpretive Statements Sinus rhythm Borderline left axis deviation Abnormal R-wave progression, early transition Compared to ECG 08/23/2020 06:23:17 No significant changes Electronically Signed On 11-18-2020 9:19:33 CDT by Jose Angel [facility] [email or web address] <ELECTRONICALLY SIGNED> By: Jose Angel [facility] MD, FACC 11/18/20 0919 38 38 Jose Angel [facility] MD, [facility] /EPI
== END 2020-11-18 01:35 | disposition home or self-care (01) ==
LOC: M.ERS 21:36
PROVIDERS: Emergency Medicine
DX: R07.89 Other chest pain (principal); E78.5 Hyperlipidemia, unspecified; I11.0 Hypertensive heart disease with heart failure; I50.32 Chronic diastolic (congestive) heart failure; E11.9 Type 2 diabetes mellitus without complications; K21.9 Gastro-esophageal reflux disease without esophagitis; E66.01 Morbid (severe) obesity due to excess calories; Z68.45 Body mass index [BMI] 70 or greater, adult; Z86.711 Personal history of pulmonary embolism; Z88.6 Allergy status to analgesic agent; Z88.8 Allergy status to other drugs, medicaments and biological substances; Z86.2 Personal history of diseases of the blood and blood-forming organs and certain disorders involving the immune mechanism; Z79.899 Other long term (current) drug therapy